=== PATIENT | female | born 2000 ===

== ENCOUNTER 2025-06-06 20:32 | Emergency (ER) | payer MEDICAID, SELFPAY ==
--- NOTE | ~2025-06-06 | XR_ITS ---
CLINICAL HISTORY: PAIN 3 views lumbar spine Comparison: None provided Findings: Mild levocurvature of the lumbar spine. No acute fractures or dislocation. Mild multilevel spondylosis, predominantly with facet arthropathy at L4-L5 and L5-S1 levels. IMPRESSION: No acute findings. Mild spondylosis predominantly with facet arthropathy at L4-L5 and L5-S1 levels. This document has been electronically signed by: Radha Rader MD on 06/06/2025 22:48:01
[2025-06-06 20:35] VITALS: BP 127/79; PULSE 88; RESP 16; TEMP 36.8; O2SAT 97; BMI 31.9
--- OUTSIDE RECORDS SUMMARY | 2025-06-06 21:06 | XMS_ITS | Clinical Summary ---
Author Organization [facility] Address [address] [place] [address] Phone Care Team Providers Care Operators Teacher Name Role Phone Unavailable Primary Care Provider Unavailabl e Allergies Active Allergy Reactions Criticality Noted Date Comments Environmental 12/18/2020 Trees & grass Mixed Feathers 12/18/2020 Shellfish Protein-Containing Drug Products 12/18/2020 Medications No known medications Active Problems Problem Noted Date Diagnosed Date Menorrhagia with irregular cycle 07/12/2022 Assessment & Plan (07/12/2022 8:52 PM EST): SA hx of miscarriage early 2021; beta hcg neg today; pt against any type of control, strongly advise consistent barrier use. Intrinsic atopic dermatitis 02/22/2018 Overview (10/07/2021): Pt with long history of significant eczema Variable compliance with treatments recommended Has not been able to perform consistent maintenance care Has seen Derm here in office Was given Clobetasol, Cerave fluff, Cephalexin and bleach baths Sometimes med is not covered and other times family can not afford treatment (ex. Cerave) Was seen by fisher terrapin, Dr.. Lara Had positive skin testing to ragweed, tree pollen, mold, cattle, feathers, dust mites, dog dander, cat dander, horse daner, rabbit dander, cockroach and sl reaction to red top grass Food skin testing revealed 2+ positive reaction to almond, coconut, oyster and scallop and 1+ reaction to pistachio, crab and lobster Was offered immunotherapy but Mom's understanding was that it would not help her skin eczema much Was ordered Eucrisa but Mom says [facility] is working on whether insurance will cover it Was also referred for Dupixent but pt has had poor follow through September 2021 - Pt is very happy with a cream that she is being supplied from [place] (through a co-worker at [facility] [place] Assessment & Plan (09/08/2019 4:45 PM EST): Add doxy for abscesses on legs - take for 14 days Family to reschedule fisher terrapin appt to discuss dupixent Continue Betamethasone to problem areas Continue fluff Use hibiclens wash daily in shower (did not tolerate swimming pool baths & did not get cln cleanser) Assessment & Plan (06/16/2019 11:42 AM EST): Kenalog 40 mg IM today right upper buttock Family to reschedule fisher terrapin appt to discuss dupixent Continue Betamethasone to problem areas Continue fluff Use cln wash 2 times per week Assessment & Plan (05/19/2019 10:58 AM EST): Continue betamethasone to problem areas and Fluff bid to entire body. Encouraged her to do this every day! Doesn't want to do bleach baths as it seemed to make it worse. Samples of CLn wash to try once per week. Has used hydroxyzine in the past, but actually made it worse because she would scratch in her sleep and not wake up to realize she was doing it! Will re-start loratadine for a non-drowsy anti-histamine to help with the pruritis. Awaiting allergy appt to discuss Dupixent. F/u derm clinic in about a month. Resolved Problems Problem Noted Date Diagnosed Date Resolved Date Need for case management follow-up 04/12/2020 10/07/2021 Overview (04/12/2020): STD screen not done due to national shortage of tests Counseling and coordination of care 09/08/2019 11/21/2021 Overview (09/08/2019): Will support with adherence for appt/care with fisher terrapin. Refused influenza vaccine 06/16/2019 Overview (06/16/2019): Refused 06/16/19 Assessment & Plan (06/16/2019 11:39 AM EST): Discussed & info given on how serious a flu season can be. Influenza can cause serious illness in children. Every year Influenza results in significant numbers of hospitalizations & deaths in the community. Immunizing children not only protects them but also the larger community since children often spread the influenza within a community. Family and /or patient still refused vaccine today Family will return for nurse visit if wishing vaccine Mild intermittent asthma without complication 11/24/19 10 11/12/2018 Immunizations Immunization Administration Dates Next Due DTaP 5 12/01/2006, 4,02/13/2003,12/09,2002 HPV Vaccine 9 Valent 04/15/2016,03/28/2015 HPV, Quadrivalent 03/14/2014 Hep A, ped/adol 03/28/2015,03/14/2014 Hep B, ped/adol 04/25/2003,02/13/2003,2002 Hib (HbOC) 02/14/2004 Hib (PRP-T) 02/13/2003,2002,2002 IPV 12/01/2006, 3,2002,09/14 Influenza Split 03/22/2012 Influenza, injectable, quadrivalent 04/15/2016 Influenza, injectable, quadr ivalent, preservative free 10/07/2021,04/11/2020 MMR 08/21/2003 MMRV 12/01/2006 Meningococcal B Trumenba 10/07/2021,04/11/2020 Meningococcal Conj (Menactra) MCV4P 11/12/2018,0 03/14/2014 PPD Test 05/09/2019 Pneumococcal Conjugate 10/08/2004,2002,2002,09/14 Tdap 03/14/2014 Varicella 06/20/2004 Family History Medical History Relation Name Comments ADD / ADHD Brother 1 Daimon Depression Brother 2 Daisean Asthma Father Asthma Mother Shequia Colon Migraines Mother Shequia Colon Asthma Paternal Grandfather Relation Name Status Comments Brother 1 Daimon Brother 2 Daisean Alive Brother 3 Julián Alive Father Father: Asthma Half-Brother Alive Half brother (M ): Alive and well, Alive and well Maternal Great-Grandmother M aternalGrtgrandmoth: Diabetes mellitus Mother Joann Lopes Mother: Asthma , Migraines Paternal Grandfather Paterna l uncle: Asthma Social History Tobacco Use Types Packs/Day Years Used Date Smoking Tobacco: Never Smokeless Tobacco: Never Tobacco Cessation:Counseling Given: Yes Alcohol Use Standard Drinks/Week Comments No 0 (1 standard drink = 0.6 oz pur e alcohol) Hunger/Food Answer Date Recorded In the last 12 months, did y ou or your family ever eat less than you felt you should because there wasn't enough money for food? No 10/07/2021 Stable Housing Answer Date Recorded Are you worried that in the next 2 months you may not have stable housing? No 10/07/2021 Transportation Concerns Answer Date Rec orded In the last 12 months, have you or your family ever had to go without healthcare because you didn't have a way to get there? No 10/07/2021 Hazards in Home Answer Date Recorded Think about the place you li ve. Do you have problems with any of the following? Pests (mice or roaches), mold, no/not working smoke detectors, water leaks, no window guards. No 2021 Financing Utilities Answer Date Recorde d In the last 12 months, has t he electric, gas, oil, or water company threatened to shut off your services in your home? No 10/07/2021 Safety at Home Answer Date Recorded Are you or your family worried about feeling saf e in your home? No 10/07/2021 Outside Support Answer Date Recorded Do you feel that you need mo re support from other people or programs to help you care for yourself or your family? No 10/07/2021 Understanding Health Concerns Answer Da te Recorded Do you need help understandi ng your or your child's healthcare needs (diagnosis, medications, plan, etc.)? No 10/07/2021 Financing Health Concerns Answer Date R ecorded In the last 12 months, was t here a time when your child needed to see a doctor or get medications or supplies but could not because of cost? No 10/07/2021 Missing School or Work Answer Date Jose A rded Did you or your child miss s chool or work because of a health problem that could have been avoided? No 10/07/2021 Comments No Sex and Gender Information Value Date Recorded Sex Assigned at Not on file Legal Sex Female 5:21 PM EDT Gender Identity Not on file Sexual Orientation Straight 10/07/2021 4: 19 PM EDT Last Filed Vital Signs Vital Sign Reading Time Taken Comments Blood Pressure 108/68 07/09/2022 3:34 PM EST Pulse 85 07/09/2022 3:34 PM EST Temperature 36.4 C (97.5 F) 08/13/2022 4:13 PM EST Respiratory Rate - - Oxygen Saturation - - Inhaled Oxygen Concentration - - Weight 73.2 kg (161 lb 6.4 oz) 08/13/2022 4:13 P M EST Height 157.5 cm (5' 2 ) 10/07/2021 4:08 PM EDT Body Mass Index 29.52 10/07/2021 4:08 PM EDT Plan of Treatment Health Maintenance Due Date Last Done Comments DTaP,Tdap,and Td Vaccines (7 - Td or Tdap) 03/14/2024 03/14/2014, 12/01/2006, 02/14/2004, Additional history exists Influenza Vaccines (#1) 2025 10/08/19, 04/11/2020, 04/15/2016, Additional history exists COVID-19 Vaccine (3 - 2024-2 6 season) 2025 03/26/2021, 02/27/2021 Hepatitis B Vaccines Completed 04/25/2003, 02/13/2003, 2002 HIB Vaccines Completed 02/14/2004, 10/2002, 2002, Additional history exists Pneumococcal Vaccine Completed 10/08/2004, 02/13/2003, 2002, Additional history exists IPV Vaccines Completed 12/01/2006, 04/12, 2002, Additional history exists MMR Vaccines Completed 12/01/2006, 08/21/2003 Varicella Vaccines Completed 12/01/2006, 06/20/2004 Hepatitis A Vaccines Completed 03/28/2015, 09/02/20 14 HPV Vaccines Completed 04/15/2016, 03/13, 03/14/2014 Meningococcal Vaccine Completed 11/12/2018, 014 Men B Vaccine Completed 10/07/2021, 04/11/2020 Procedures * Due to [facility] law, this organization might not be sharing sensitive test results. Procedure Name Priority Date/Time Associated Diagnosis Comments CHLAMYDIA AND GONORRHEA, AMPLIFIED Routine 10/07/2021 4:45 PM EDT Encounter for screening examination for chlamydial infection from Last 3 Months or Most Recently Relevant to Health Maintenance Results * Due to [place] law, this organization might not be sharing sensitive test results. * Chlamydia and Gonorrhoea, Amplified (10/07/2021 4:45 PM EDT) Chlamydia Trachomatis, DNA Probe NEGATIVE (NEG) [facility] Comment: No Chlamydia Trachomatis RNA detected in this patient's sample (REFERENCE RANGE/NORMAL VALUE: NOT DETECTED) Note: This test uses technical producer- mediated amplification method to detect rRNA from C. Trachomatis URINE GC AMP PROBE NEGATIVE (NEG) [facility] Comment: No Neisseria Gonorrhoeae RNA detected in this patient's sample (REFERENCE RANGE/NORMAL VALUE: NOT DETECTED) NOTE: This test uses technical producer-mediated amplification method to detect rRNA from N.Gonorrhoeae. A negative result does not preclude infection. In the case of a negative urine result, testing of an endocervical(female) or urethral (male) specimen is recommended if there is high clinical suspicion of infection. Due to very high sensitivity of Nucleic Acid Amplification Test, false positive results may occur. Therefore, specimen handling is extremely important. In patients in whom the disease is unlikely, additional sample for testing should be considered after an initial positive result. The performance characteristics of this test have not been evaluated in children. The Aptima Combo2 assay is not intended for the evaluation of suspected sexual abuse or for other medico-legal indications. The ordering provider should assess if the patient had consensual sex without risk of sexual abuse. Consult the [facility] if needed. Contact phone number . Therapeutic failure or success cannot be determined with the Aptima Combo2 assay since nucleic acid may persist following appropriate antimicrobial therapy. The Centers for Disease Control and Prevention (CDC) recommends confirmatory retesting using culture or a different nucleic acid amplification test when positive results occur, if indicated. Testing performed or reported by [facility], a Service of [facility], [facility] [address], [place] [address] John Anderson MD, Cadd Instructor [facility]# [id number] Urine (Urine) 10/07/2021 4:4 5 PM EDT 10/08/2021 12:39 AM EDT us Anne Marie Farrell MD LAB MICROBIOLOGY - GENERAL ORDERABLES Final Result [facility] from Last 3 Months or Most Recently Relevant to Health Maintenance
--- OUTSIDE RECORDS SUMMARY | 2025-06-06 21:06 | XMS_ITS | Encounter Summary ---
Author Organization [facility] Address [address] [place] [address] Phone Care Team Providers Care Household Refrigerator Mechanic Name Role Phone Anne Marie Farrell MD Primary Care Provider Encounter Details Date Type Department Care Team (Late st Contact Info) Description 07/23/2016 Documentation [facility] Family Medicine [address] [place], [place] [id number] Family Medicine, Physician [address], [place] [address] Social History Tobacco Use Types Packs/Day Years Used Date Smoking Tobacco: Never Assessed Comments Unknown Sex and Gender Information Value Date Recorded Sex Assigned at Not on file Legal Sex Female 5:21 PM EDT Gender Identity Not on file Sexual Orientation Straight 10/07/2021 4: 19 PM EDT documented as of this encounter Plan of Treatment Not on file documented as of this encounter Visit Diagnoses Not on filedocumented in this encounter Care Teams Household Refrigerator Mechanic Relationship Specialty Start Date End Date Anne Marie Farrell MD [address] [place] [id number] PCP - General 02/20/17 10/08/23 documented as of this encounter
--- OUTSIDE RECORDS SUMMARY | 2025-06-06 21:06 | XMS_ITS | Encounter Summary ---
Author Organization [facility] Address [address] [place] [address] Phone Care Team Providers Care Branch Sales And Service Representative Name Role Phone Anne Marie Farrell MD Primary Care Provider Encounter Details Date Type Department Care Team (Late st Contact Info) Description 02/26/[address] [facility] [address] [place] [address] Social History Tobacco Use Types Packs/Day Years [...] on filedocumented in this encounter Care Teams Branch Sales And Service Representative Relationship Specialty Start Date End Date Anne Marie Farrell MD [address] [place] [address] PCP - General 02/20/17 10/08/23 documented as of this encounter
[2025-06-06 21:13] LABS: UPreg QC Valid YES
[2025-06-06 21:23] LABS: Appearance Urine Clear; Glucose Urine UA Negative (Negative); PH 6.0 (5.0-9.0); Specific Gravity - Urine <= 1.005 (1.005-1.025)
[2025-06-06 21:47] LABS: Resp Syncy Virus RNA Qual PCR NEGATIVE (Negative); SARS COV2 PCR INHOUSE POSITIVE (Negative)
[2025-06-06 21:48] VITALS: BP 129/87; PULSE 68; RESP 18; TEMP 36.8; O2SAT 100
[2025-06-06] MEDS: Lidocaine 4 % Patch ADH..PATCH 1 PATCH TRANSDERMA (22:10)
--- NOTE | 2025-06-06 22:48 | ED.BACK ---
HPI - Back Pain/Injury General Chief Complaint: Back Pain/Injury Stated Complaint: Back Pain Time Seen by Provider: 06/06/25 20:45 History of Present Illness ED Provider: Nellie Evans [facility] Narrative: 24-year-old female presents to the ED per urgent Care, with chief complaint of lower back pain. Patient reports the pain has been ongoing for about 2 weeks, she can not recall any specific incident when the pain began. Pain radiates to both sides of the lower back, near the flank. Pain becomes worse to the mid low back, occasionally traveling with range of motion exercises. Occasionally described as the spasm. She reports that a few weeks ago, her nephew jumped on her upper back when she was sitting down. There was no indirect trauma to the lower back, however she did feel some discomfort after that. Denies any urinary complaints such as dysuria, hematuria, urgency or frequency. No urinary incontinence, bowel incontinence. No saddle anesthesia. No numbness, weakness in the legs. No fever, chills, though does report nasal congestion, cough ongoing for the past 48 hours. No abdominal pain, nausea or vomiting. No chest pain or pressure. No shortness of breath. Related Data Previous Rx's ?Medication ?Instructions ?Recorded lidocaine 5 % topical patch 1 patch topical DAILY 7 days #15 ea 06/06/25 (Lidoderm) methocarbamol 500 mg tablet 1,000 mg (2 x 500 mg) PO QID PRN 06/06/25 spasms 5 days #28 tabs Allergies Allergy/AdvReac Type Severity Reaction Status Date / Time No Known Allergies Allergy Verified 06/06/25 20:40 Review of Systems Review of Systems: ROS is otherwise negative unless mentioned in HPI. [facility] Social History Social History Advance Directives: No Advance Directives Information Provided: No Physical Exam Exam: Exam: Nursing notes and vital signs reviewed. Constitutional: Well-appearing, NAD. Alert. Oriented X3. ENT: Pharynx normal. Neck: Normal inspection. Neck supple. CVS: Normal heart rate and rhythm. Pulses normal. Respiratory: No respiratory distress. Breath sounds normal. Abdomen: Soft and nontender, nondistended. Discomfort to the bilateral flanks to palpation, but no CVA tenderness. Skin: Skin warm and dry. Normal skin color. Extremities: No lower extremity edema. 2+ patellar DTRs. Neuro: Oriented X 3. No motor deficit. Vital Signs: Vital Signs: Last Vital Signs Temp 98.3 F 06/06/25 21:48 Pulse 68 06/06/25 21:48 Resp 18 06/06/25 21:48 BP 129/87 06/06/25 21:48 Pulse Ox 100 06/06/25 21:48 O2 Del Method Room Air 06/06/25 21:48 BMI result Body Mass Index 31.9 Medications Administered Discontinued Medications Generic Name Dose Route Start Last Admin Trade Name Shanell PRN Reason Stop Dose Admin Acetaminophen 975 mg 06/06/25 21:59 06/06/25 22:10 Acetaminophen 325 Mg Tablet PO 06/06/25 22:00 975 mg ONCE ONE Administration Lidocaine 1 patch 06/06/25 21:59 06/06/25 22:10 Lidocaine 4 % Patch Adh..Patch TRANSDERMA 06/06/25 22:00 1 patch ONCE ONE Administration Protocol Medical Decision Making Medical Decision Making [facility] Narrative: On exam, the patient is overall well-appearing. She is sniffling, fevers congested. In the viral panel is positive for COVID-19, correlating with this diagnoses. However, urinalysis shows no signs of infection, there was also no hematuria of mucus stranding for any direct trauma. Given the location of the pain, we will obtain a x-ray of the lumbar spine. We will administer a Lidoderm patch, Tylenol orally. I offered her a Toradol injection but she has declined and prefers oral pills. We will reassess. 2255-- X-ray with no acute abnormality, no acute findings. We will discharge home with outpatient follow up with orthopedics if pain is to persist, as well as enforce strict return precautions to present back to the ED with any worsening complaints. I have prescribed a short course of muscle relaxants to help with the discomfort as well. For her COVID diagnoses, I recommended quarantining per CDC guidelines. Patient is agreeable, expressed understanding. Differential Diagnosis Differential Diagnoses: The differential diagnosis associated with the presentation includes Lumbar radiculopathy, sciatica, lumbosacral strain, pyelonephritis, cystitis, viral illness Admission/Observation Consideration of admission/observation: Escalation of care including admission/observation considered (Not indicated) Lab Data [facility] Lab Attestation statement: I reviewed the patient's lab results. (Positive for COVID-19, negative urinalysis.) Labs: Lab Results 06/06/25 Range/Units 20:53 Urine Color Straw Urine Appearance Clear Urine pH 6.0 (5.0-9.0) Ur Specific [place] <= 1.005 (1.005-1.025) Urine Protein Negative (Neg-Trace) mg/dL Urine Glucose (UA) Negative (Negative) mg/dL Urine Ketones Negative (Negative) mg/dL Urine Blood Negative (Negative) Urine Nitrite Negative (Negative) Ur Leukocyte Esterase Negative (Negative) Urine Test NEGATIVE (NEGATIVE) Influenza Type A (PCR) NEGATIVE (Negative) Influenza Type B (PCR) NEGATIVE (Negative) RSV RNA Qual (PCR) NEGATIVE (Negative) SARS-CoV-2 RNA (RT-PCR) POSITIVE A (Negative) Independent Interpretation I performed an independent interpretation of an: Plain X-Ray Interpretation: I have reviewed the patient's imaging and agree with the radiologist's findings. Radiology Impression Discussion of test interpretation with radiology: I have reviewed the radiologist's reading. Radiologist Impression: XR Lumar Spine: IMPRESSION: No acute findings. Mild spondylosis predominantly with facet arthropathy at L4-L5 and L5-S1 levels. Independent Historian None Social Determinants Patient?s care significantly limited by Social Determinants of Health including: Problems related to primary support group Discharge Plan Discharge Clinical Impression: COVID-19 Strain of lumbar region Qualifiers: Encounter type: initial encounter Qualified Code(s): S39.012A - Strain of muscle, fascia and tendon of lower back, initial encounter Patient Disposition: Home, Self-Care Instructions: Back Pain (ED), COVID-19 (Coronavirus Disease 2019) (ED) Additional Instructions: As we discussed, the x-ray of the lower back shows no acute findings. There is evidence of spondylosis predominantly with facet arthropathy in your lower back at L4-L5 and L5-S1. Please follow up with orthopedics if your pain persists. I have prescribed you a short course of muscle relaxants called Robaxin to help with your discomfort. You may use these as needed for muscle spasm relief. You may also use the prescribed Lidoderm patches for pain. Otherwise, your urine sample showed no signs of infection. You are positive for COVID 19. Please quarantine per the CDC guidelines. With any worsening complaints at any time, please seek re-evaluation in the ED. Prescriptions: New methocarbamol 500 mg tablet 1,000 mg PO QID PRN (Reason: spasms) 5 Days Qty: 28 0RF lidocaine [Lidoderm] 5 % adhesive patch,medicated 1 patch topical DAILY 7 Days Qty: 15 0RF Rx Instructions: leave on most painful area for up to 12 hrs Referrals: [facility] [place] Family Medicine [Provider Group, Family Practice] [facility] [place] Orthopedic Surgeons [Provider Group] Stand Alone Forms: Work/School Release Print Language: Canadian
[2025-06-06 23:07] VITALS: BP 129/87; PULSE 68; RESP 18; TEMP 36.8; O2SAT 100
== END 2025-06-06 23:18 | disposition home or self-care (01) ==
PROVIDERS: Emergency Provider Student in an Organized Health Care Education/Training Program
DX: U07.1 COVID-19 (principal); S39.012A Strain of muscle, fascia and tendon of lower back, initial encounter; X58.XXXA Exposure to other specified factors, initial encounter; Y93.9 Activity, unspecified; Y92.9 Unspecified place or not applicable; Y99.9 Unspecified external cause status; M51.9 Unspecified thoracic, thoracolumbar and lumbosacral intervertebral disc disorder
CPT/HCPCS: 72100; 81003; 81025; 87637; 99284

== ENCOUNTER → 2025-06-06 21:30 | Outpatient (BNV) | payer MEDICAID, SELFPAY | PROVIDERS: Emergency Provider Student in an Organized Health Care Education/Training Program; Visit Provider Student in an Organized Health Care Education/Training Program | DX: M47.817 Spondylosis without myelopathy or radiculopathy, lumbosacral region (principal) | CPT/HCPCS: 72100 ==